=== PATIENT | female | born 2000 | race Caucasian/White ===

== ENCOUNTER 2020-03-04 11:48 | Outpatient (CLI) | payer BC, SELFPAY ==
[2020-03-04 13:53] LABS: Hepatitis B Surface Antigen Negative (Negative)
[2020-03-04 14:10] LABS: Hepatitis C Virus Antibody Negative (Negative)
[2020-03-05 09:42] LABS: Rapid Plasma Reagin Non-Reactive (NonReactive)
[2020-03-08 15:35] LABS: HSV 1 IgM Screen Negative (Negative); HSV 2 IgM Screen Negative (Negative)
== END 2020-03-04 11:49 | disposition home or self-care (01) ==
PROVIDERS: PCP Family Medicine; Visit Provider Obstetrics & Gynecology
DX: Z11.3 Encounter for screening for infections with a predominantly sexual mode of transmission (principal)
CPT/HCPCS: 36415; 86592; 86695; 86696; 86803; 87340

== ENCOUNTER 2020-03-19 11:09 | Outpatient (CLI) | payer BC, SELFPAY ==
[2020-03-19 12:47] LABS: HIV 1/2 Ab P24 Ag Result Negative (Negative)
== END 2020-03-19 11:10 | disposition home or self-care (01) ==
LOC: ANHLAB 11:10
PROVIDERS: PCP Family Medicine; Visit Provider Obstetrics & Gynecology
DX: Z20.2 Contact with and (suspected) exposure to infections with a predominantly sexual mode of transmission (principal)
CPT/HCPCS: 36415; 86703; G0432